=== PATIENT | male | born 1940 | race Caucasian/White ===

== ENCOUNTER 2020-06-04 16:34 | Emergency (ER) | payer MEDICARE, OTHER ==
[~2020-06-04] VITALS: Ht 182.9 cm; Wt 99.8 kg
[2020-06-04] MEDS ORDERED: FURO20TA4 PO (17:41)
[2020-06-04] MEDS ORDERED: POTA8TAB3 PO (17:41)
[2020-06-04] MEDS ORDERED: CETI10TA14 PO (17:41)
[2020-06-04] MEDS ORDERED: CLON1TAB12 MT (17:41)
--- NOTE | 2020-06-04 18:14 | NUR ---
[facility], + COVID test per shook splicer report Isolation precaution observed all the time All blood works done and sent to lab
[2020-06-04 18:20] LABS: BASOPHILS % (AUTO) 0.5 % (0.0-2.0); PLATELET COUNT (AUTO) 160 /CMM (150-450)
[2020-06-04 18:22] LABS: EOSINOPHILS % (AUTO) 0.1 % (0.0-6.0); HEMATOCRIT 52 % (39-51); HEMOGLOBIN 17.5 g/dL (13.5-17.5); LYMPHOCYTES % (AUTO) 12.3 % (20.0-44.0); MEAN CORPUSCULAR HGB CONC 33 g/dl (31.0-36.0); MEAN CORPUSCULAR VOLUME 89 fL (80-96); MONOCYTES % (AUTO) 12.5 % (2.0-12.0); NEUTROPHILS % (AUTO) 74.6 % (43.0-81.0); RED BLOOD CELL COUNT(AUTO) 5.87 MIL/uL (4.5-6.0)
[2020-06-04 18:29] LABS: CALCIUM, SERUM 8.4 mg/dL (8.5-10.1); CARBON DIOXIDE 25 mmol/L (21-32); CHLORIDE 100 mmol/L (98-107); CREATININE 1.7 mg/dL (0.6-1.3); GLUCOSE 130 mg/dL (74-106); POTASSIUM 4.4 mmol/L (3.5-5.1); SODIUM SERUM 136 mmol/L (136-145); UREA NITROGEN, BLOOD 20 mg/dL (7-18)
[2020-06-04 18:43] LABS: ALANINE AMINOTRANSFERASE 31 U/L (12-78); ALBUMIN 3.3 g/dL (3.4-5.0); ALKALINE PHOSPHATASE 109 U/L (46-116); ASPARTATE AMINOTRANSFERASE 38 U/L (15-37); B-TYPE NATRIURETIC PEPTIDE 480 PG/ML (0-125); BILIRUBIN,TOTAL 0.7 mg/dL (0.2-1.0); TOTAL PROTEIN, SERUM 7.8 g/dL (6.4-8.2)
--- NOTE | 2020-06-04 18:43 | NUR ---
to ER 07; isolation precaution observed at all time
--- NOTE | 2020-06-04 19:16 | NUR ---
MOVE SHEET SUBMITTED.
[2020-06-04 19:34] LABS: CREATINE KINASE, TOTAL 137 U/L (39-308); FERRITIN 382 ng/mL (8-388)
[2020-06-04 19:35] LABS: C-REACTIVE PROTEIN 6.6 mg/dL (0.0-0.9)
--- NOTE | 2020-06-04 19:36 | NUR ---
Unable to move the patient to ER bed 7; another sick patient showed up. Awaiting for bed availability at the ER department, for now the patient stays at the [facility]
[2020-06-04] MEDS ORDERED: CEFTRIAXONE 1 G in IV D5W 50 ML IV ONE (20:00)
[2020-06-04] MEDS ORDERED: AZITHROMYCIN 500 MG in IV D5W 250 ML IV ONE (20:00)
[2020-06-04] MEDS ORDERED: AZITHROMYCIN 250 MG TABLET ONE (20:29)
[2020-06-04] MEDS ORDERED: IV NS 0.9% 1,000 ML IV ONE (20:30)
[2020-06-04] MEDS ORDERED: AZITHROMYCIN 250 MG TABLET PO ONE (20:30)
--- NOTE | 2020-06-04 21:56 | NUR ---
FAMILY AT ER TO DRIVE PATIENT HOME.
--- NOTE | 2020-06-04 22:10 | NUR ---
Patient discharged to home in stable condition. Written and verbal after care instructions given. Patient verbalizes understanding of instruction.IV removed. Catheter intact and site benign. Pressure and 4x4 applied to site. No bleeding noted.
[2020-06-04 22:11] VITALS: BP 153/87
== END 2020-06-04 22:12 | disposition home or self-care (01) ==
LOC: ER 16:37
DX: U07.1 COVID-19 (principal); R55 Syncope and collapse; J12.89 Other viral pneumonia; E11.9 Type 2 diabetes mellitus without complications; Z79.899 Other long term (current) drug therapy
CPT/HCPCS: 36415; 70450; 71045; 80053; 82550; 82728; 83605; 83615; 83880; 84145; 84484; 85025; 85730; 86140; 87040 ×2; 93005; 96360; 99285; J0696; J7060

== ENCOUNTER 2021-04-20 14:05 | Inpatient (IN) | payer MEDICARE, OTHER ==
[2021-04-20] VITALS (20 sets, daily range): BP systolic 105–154; BP diastolic 65–107
[~2021-04-20] VITALS: Ht 177.8 cm; Wt 102.1 kg
[~2021-04-20 14:05] MED LIST: CETI10TA14 PO; CLON1TAB12 MT; FURO20TA4 PO; POTA8TAB3 PO
--- NOTE | 2021-04-20 14:21 | NUR ---
[id number] frm home c/o SOB since 10am. got covid booster dose yesterday. PT AAOX4, RR EVEN & UNLAB. ON TELE, ST. DENIES CP, DIZZINESS, N/V AT THIS TIME. AWAITING EVAL BY ERMD & WILL CONT TO MONITOR.
--- NOTE | 2021-04-20 14:35 | NUR ---
DR. LEIVA AT FOR DENISSEAL.
[2021-04-20] MEDS ORDERED: DILTIAZEM HCL 50 MG IV IV ONE (14:48)
[2021-04-20] MEDS ORDERED: IV NS 0.9% 100 ML BAG IV ONE (14:48)
[2021-04-20 15:21] LABS: BASOPHILS % (AUTO) 0.5 % (0.0-2.0); EOSINOPHILS % (AUTO) 0.3 % (0.0-6.0); HEMATOCRIT 50 % (39-51); HEMOGLOBIN 16.8 g/dL (13.5-17.5); LYMPHOCYTES # (AUTO) 1.2 K/uL (0.8-4.8); LYMPHOCYTES % (AUTO) 11.5 % (20.0-44.0); MEAN CORPUSCULAR HGB CONC 34 g/dl (31.0-36.0); MEAN CORPUSCULAR VOLUME 90 fL (80-96); MONOCYTES # (AUTO) 0.8 K/uL (0.1-1.30); MONOCYTES % (AUTO) 7.7 % (2.0-12.0); NEUTROPHILS # (AUTO) 8.3 K/uL (1.8-8.9); PLATELET COUNT (AUTO) 217 K/uL (150-450); RED BLOOD CELL COUNT(AUTO) 5.58 MIL/uL (4.5-6.0); WHITE BLOOD COUNT (AUTO) 10.3 K/uL (4.3-11.0)
[2021-04-20 15:45] LABS: ALANINE AMINOTRANSFERASE 46 U/L (12-78); ALBUMIN 3.9 g/dL (3.4-5.0); ALKALINE PHOSPHATASE 114 U/L (46-116); ASPARTATE AMINOTRANSFERASE 30 U/L (15-37); BILIRUBIN,DIRECT 0.2 mg/dL (0.0-0.2); BILIRUBIN,TOTAL 0.7 mg/dL (0.2-1.0); CALCIUM, SERUM 9.1 mg/dL (8.5-10.1); CARBON DIOXIDE 26 mmol/L (21-32); CHLORIDE 101 mmol/L (98-107); CREATININE 1.6 mg/dL (0.6-1.3); GLUCOSE 110 mg/dL (74-106); POTASSIUM 4.1 mmol/L (3.5-5.1); SODIUM SERUM 138 mmol/L (136-145); UREA NITROGEN, BLOOD 29 mg/dL (7-18)
--- NOTE | 2021-04-20 16:19 | NUR ---
MOVE SHEET SUBMITTED
[2021-04-20] MEDS ORDERED: FUROSEMIDE 40 MG/4 ML VIAL IV ONE (16:30)
[2021-04-20] MEDS ORDERED: ADENOSINE 6 MG/2 ML VIAL ONE ×2 (16:35→16:38)
[2021-04-20] MEDS ORDERED: ADENOSINE 6 MG/2 ML VIAL IVP ONE ×2 (17:00→17:30)
--- NOTE | 2021-04-20 17:05 | NUR ---
CARDIOVERSION UNSUCCESSFUL. ON TELE, HR 145. PT WILL START ON CARDIZEM DRIP PER ERMD ORDER. WILL CONT TO MONITOR.
--- NOTE | 2021-04-20 17:10 | NUR ---
[facility] CALLED CHILD CARE ATTENDANT [employer] PAGED.
[2021-04-20] MEDS ORDERED: FUROSEMIDE 40 MG/4 ML VIAL ONE (17:18)
[2021-04-20] MEDS ORDERED: DILTIAZEM HCL IV 125 MG in IV NS 0.9% 100 ML IV PRN (17:30)
[2021-04-20 17:44] LABS: THYROID STIMULATING HORMONE 3.094 uIU/mL (0.358-3.74)
--- NOTE | 2021-04-20 17:45 | NUR ---
CARDIZEM DRIP INITIATED PER ERMD ORDER, PT NICOLE WELL. WILL CONT TO MONITOR.
[2021-04-20 17:46] LABS: MAGNESIUM 2.3 mg/dL (1.8-2.4)
[2021-04-20] MEDS ORDERED: MAG HYDROX/AL HYDROX/SIMETH 30 ML UDC PO PRN (18:00)
[2021-04-20] MEDS ORDERED: MAGNESIUM HYDROXIDE 30 ML UDC PO PRN (18:00)
[2021-04-20] MEDS ORDERED: ZOLPIDEM TARTRATE 5 MG TABLET PO PRN (18:00)
[2021-04-20] MEDS ORDERED: Z GUARD REMEDY 2 OZ OINT TP PRN (18:00)
[2021-04-20] MEDS ORDERED: ONDANSETRON HCL/PF 4 MG/2 ML VIAL IVP PRN (18:00)
--- NOTE | 2021-04-20 18:43 | NUR ---
REPORT GIVEN TO EZEQUIEL PAZ FOR DIONNA
--- NOTE | 2021-04-20 18:58 | NUR ---
RN NOTE RECEIVED PATIENT FROM ER VIA GURNEY ACCOMPANIED BY 2 ER STAFF AND TRANSFERRED TO BED VIA 2 PERSON ASSIST. PT IS AO X 3-4, HAS DIFFICULTY HEARING ON BOTH EARS, IN NO SIGN OF ACUTE DISTRESS, RESPIRATIONS EVEN AND UNLABORED, SATURATION AT 99% ON 2L VIA NC. COMPREHENSIVE PHYSICAL ASSESSMENT AND PATIENT CARE DONE. NO SKIN ISSUES NOTED. NOTED IV LINE AT KUSHAL 20G, AND R HAND 20G, BOTH PATENT AND FLUSHING WELL, NO S/S OF INFECTION OR INFILTRATION NOTED WITH CARDIZEM INFUSING AT 10 MG/HR. SAFETY MEASURES IN PLACE, CALL LIGHT WITHIN REACH OF PATIENT, BED ON LOWEST POSITION, SIDE RAILS UP X 2. WILL CONTINUE MONITOR AND ASSESS THROUGHOUT THE SHIFT. WILL CARRY OUT MD ORDERS ACCORDINGLY. RADAR ENGINEER MADE AWARE.
[2021-04-20] MEDS ORDERED: ENOXAPARIN SODIUM 40 MG/0.4 ML DISP.SYRIN SQ SCH ×2 (19:00→21:00)
--- NOTE | 2021-04-20 20:05 | NUR ---
RN NOTE COVID ANTIGEN SWAB COLLECTED AND SENT TO LAB
[2021-04-20] MEDS: DILTIAZEM HCL IV 125 MG in IV NS 0.9% 100 ML IV PRN (21:09)
[2021-04-21] VITALS (89 sets, daily range): BP systolic 84–155; BP diastolic 45–114
[2021-04-21 05:06] LABS: BASOPHILS % (AUTO) 0.6 % (0.0-2.0); EOSINOPHILS % (AUTO) 0.4 % (0.0-6.0); HEMATOCRIT 46 % (39-51); HEMOGLOBIN 16.2 g/dL (13.5-17.5); LYMPHOCYTES % (AUTO) 16.4 % (20.0-44.0); MEAN CORPUSCULAR HGB CONC 35 g/dl (31.0-36.0); MEAN CORPUSCULAR VOLUME 88 fL (80-96); MONOCYTES # (AUTO) 0.9 K/uL (0.1-1.30); MONOCYTES % (AUTO) 14.6 % (2.0-12.0); PLATELET COUNT (AUTO) 188 K/uL (150-450); RED BLOOD CELL COUNT(AUTO) 5.25 MIL/uL (4.5-6.0); WHITE BLOOD COUNT (AUTO) 5.8 K/uL (4.3-11.0)
[2021-04-21] MEDS: DILTIAZEM HCL IV 125 MG in IV NS 0.9% 100 ML IV PRN (05:17)
[2021-04-21 05:20] LABS: ALANINE AMINOTRANSFERASE 31 U/L (12-78); ALBUMIN 3.2 g/dL (3.4-5.0); ALKALINE PHOSPHATASE 102 U/L (46-116); ASPARTATE AMINOTRANSFERASE 18 U/L (15-37); BILIRUBIN,TOTAL 0.6 mg/dL (0.2-1.0); CALCIUM, SERUM 8.3 mg/dL (8.5-10.1); CARBON DIOXIDE 28 mmol/L (21-32); CHLORIDE 101 mmol/L (98-107); CREATININE 1.7 mg/dL (0.6-1.3); GLUCOSE 126 mg/dL (74-106); MAGNESIUM 2.2 mg/dL (1.8-2.4); PHOSPHORUS 3.9 mg/dL (2.5-4.9); POTASSIUM 3.8 mmol/L (3.5-5.1); SODIUM SERUM 137 mmol/L (136-145); TOTAL PROTEIN, SERUM 6.9 g/dL (6.4-8.2); UREA NITROGEN, BLOOD 28 mg/dL (7-18)
[2021-04-21 05:28] LABS: THYROID STIMULATING HORMONE 1.118 uIU/mL (0.358-3.74)
--- NOTE | 2021-04-21 08:00 | NUR ---
RN NOTES RECEIVED PATIENT ON ROOM AIR, NO ACUTE RESPIRATORY DISTRESS, HR CONVERTED TO THE REGULAR RHYTHM, ON BEDSIDE MONITOR SHOWS 74. INFUSING CARDIZEM 5 MG/ML/HR ON RIGHT HAND INTACT. PATIENT REFUSED PAIN, USING URINAL. VSS,. SEEN [place] CONSULTANT DR BAEZA FOR CONSULTATION. TOLERATED BREAKFAST 75% SELF. CALL LIGHT WITHIN TO REACH.
[2021-04-21] MEDS: cetrizine 10 MG TABLET PO SCH (09:29)
[2021-04-21] MEDS: FUROSEMIDE 40 MG/4 ML VIAL IV SCH (09:29)
[2021-04-21] MEDS ORDERED: AMIODARONE 450 MG in IV D5W 250 ML IV PRN (09:30)
[2021-04-21] MEDS ORDERED: AMIODARONE 150 MG in IV D5W 100 ML IV ONE (09:30)
--- NOTE | 2021-04-21 09:37 | NUR ---
RN NOTES STOP CARDIZEM DRIP PER RECORDING STUDIO INTERNSHIP ORDER, DUE MEDICATION ADMINISTERED, STARTED AMIODARONE BOLUS 618ML, GETTING BEDSIDE ECHO.
[2021-04-21] MEDS: APIXABAN 2.5 MG TABLET PO SCH ×2 (09:58→17:53)
[2021-04-21] MEDS: AMIODARONE 450 MG in IV D5W 241 ML IV PRN ×2 (10:42→20:08)
--- NOTE | 2021-04-21 14:35 | NUR ---
RN NOTES UA COLLECTED VIA CLEAN CATCH, CALLED LAB FOR MULTIPLEX OPERATOR.
[2021-04-21] MEDS: ACETAMINOPHEN 325 MG TABLET PO PRN (15:05)
--- NOTE | 2021-04-21 15:05 | NUR ---
RN NOTES ADMINISTERED TYLENOL 650 MG PO PRN FOR HEADACHE PER PATIENT REQUEST HR-94, BP 111/57, R-19. WILL FOLLOW UP.
[2021-04-21 15:57] LABS: CREATININE, URINE 47.5 MG/DL (30.0-125.0); URINE TOTAL PROTEIN 17.6 mg/dL (0-11.9)
[2021-04-21 16:19] LABS: BILIRUBIN,URINE NEGATIVE (NEGATIVE); COLOR,URINE YELLOW (YELLOW); LEUKOCYTE ESTERASE ,URINE NEGATIVE (NEGATIVE); NITRITE, URINE NEGATIVE (NEGATIVE); PROTEIN,URINE NEGATIVE (NEGATIVE); UGLUCOSE NEGATIVE (NEGATIVE); UROBILINOGEN,URINE 0.2 EU/dL (0.2)
[2021-04-21 16:41] LABS: BACTERIA,URINE None seen /HPF (None Seen); HYALINE CASTS, URINE RARE /LPF (None Seen); SQUAMOUS EPITHELIAL CELL,UR 0-2 /HPF (None Seen); WBC,URINE 0-2 /HPF (0-3)
--- NOTE | 2021-04-21 18:30 | NUR ---
rn notes patient again afif at this time bedside monitor shows hr 108, refused pain, no acute respiratory distress. due medication administered, patient using urinal, bed alarm on. call light within to reach. infusing amiodarone drip 16.6 ml/hr. endorsed oncoming nurse les.
[2021-04-22] VITALS (38 sets, daily range): BP systolic 93–158; BP diastolic 43–104
--- NOTE | 2021-04-22 04:22 | NUR ---
RN notes Received patient awake in bed watching TV with no distress noted. On 2lpm O2 via nasal cannula tolerating well. Alert and oriented, verbally able to communicate needs. No complaint of pain or discomfort. Continent of bowel and bladder function. On amiodarone drip at 0.5mcg/kg/hr, toelrating well. Kept clean and dry. Will endorse to next shift for continuity of care.
--- NOTE | 2021-04-22 07:30 | NUR ---
OPENING NOTE: REPORT RECEIVED FROM LARRY NIEVES. PT OX3 PER REPORT. PT APPEARS TO BE SLEEPING AT THIS TIME. AMIODARONE GTT INFUSING PER MD ORDERS, D/T END AT 0945 THIS AM. PT CURRENTLY SINUS TACH. NO ISOLATION NOTED. PT CHECKED ON HOURLY AND PRN BY NURSING STAFF.
[2021-04-22 08:15] LABS: BASOPHILS % (AUTO) 0.4 % (0.0-2.0); EOSINOPHILS % (AUTO) 1.1 % (0.0-6.0); HEMATOCRIT 48 % (39-51); LYMPHOCYTES % (AUTO) 13.9 % (20.0-44.0); MEAN CORPUSCULAR HGB CONC 34 g/dl (31.0-36.0); MEAN CORPUSCULAR VOLUME 90 fL (80-96); MONOCYTES # (AUTO) 1.1 K/uL (0.1-1.30); NEUTROPHILS % (AUTO) 69.6 % (43.0-81.0); PLATELET COUNT (AUTO) 175 K/uL (150-450); RED BLOOD CELL COUNT(AUTO) 5.28 MIL/uL (4.5-6.0); WHITE BLOOD COUNT (AUTO) 7.1 K/uL (4.3-11.0)
[2021-04-22 08:41] LABS: ALANINE AMINOTRANSFERASE 41 U/L (12-78); ALBUMIN 3.1 g/dL (3.4-5.0); ALKALINE PHOSPHATASE 111 U/L (46-116); ASPARTATE AMINOTRANSFERASE 28 U/L (15-37); BILIRUBIN,TOTAL 0.6 mg/dL (0.2-1.0); CALCIUM, SERUM 8.1 mg/dL (8.5-10.1); CARBON DIOXIDE 32 mmol/L (21-32); CHLORIDE 100 mmol/L (98-107); CREATININE 2.1 mg/dL (0.6-1.3); GLUCOSE 128 mg/dL (74-106); MAGNESIUM 2.1 mg/dL (1.8-2.4); PHOSPHORUS 3.2 mg/dL (2.5-4.9); SODIUM SERUM 138 mmol/L (136-145); UREA NITROGEN, BLOOD 37 mg/dL (7-18)
[2021-04-22 09:00] LABS: THYROID STIMULATING HORMONE 2.088 uIU/mL (0.358-3.74)
[2021-04-22] MEDS: FUROSEMIDE 40 MG/4 ML VIAL IV SCH (09:52)
[2021-04-22] MEDS: APIXABAN 2.5 MG TABLET PO SCH ×2 (09:53→17:21)
[2021-04-22] MEDS: cetrizine 10 MG TABLET PO SCH (09:53)
--- NOTE | 2021-04-22 10:23 | NUR ---
RIGHT HAND IV PAINFUL TO FLUSH, SLIGHT BLOOD RETURN. IV SITE REMOVED D/T PAIN. MULTIPLE ATTEMPTS TO START NEW IV SITE WITHOUT SUCCESS. ORDER FOR MIDLINE RECEIVED. GUSTABO, NURSING MEDICAL DEVICE ENGINEER NOTIFIED OF NEED FOR MIDLINE DAV. LASIX DOSE WILL BE GIVEN WITH NEW IV SITE.
--- NOTE | 2021-04-22 11:45 | NUR ---
AM LASIX DOSE GIVEN AT THIS TIME. NEW MIDLINE INSERTED BY PICC LINE RN AT 1120 IN LEFT UPPER ARM
[2021-04-22] MEDS: METOPROLOL TARTRATE 50 MG TABLET PO SCH ×2 (12:57→17:21)
[2021-04-22] MEDS: ACETAMINOPHEN 325 MG TABLET PO PRN (12:57)
[2021-04-22] MEDS ORDERED: IV NS 0.9% 250 ML IV ONE (14:30)
--- NOTE | 2021-04-22 18:38 | NUR ---
END OF SHIFT NOTE: PT HAD A FAIRLY UNEVENTFUL SHIFT. MIDLINE INSERTED IN LEFT UPPER ARM PER MD ORDERS. AMIODARONE DC'D PER DR BAEZA. PT CONTINUES TO BE IN A-FIB IN THE 80'S-90'S MOST OF THE SHIFT, THIS AM HE WAS IN ST IN THE 130'S-140'S. PT IS ASYMPTOMATIC. PT VOIDED PER URINAL WITHOUT DIFFICULTY. PT SAT IN CHAIR FOR A FEW HOURS TODAY WITHOUT DIFFICULTY, ABLE TO MOVE AROUND IN BED AND TO CHAIR WITHOUT ASSISTANCE. PT CHECKED ON HOURLY AND PRN BY NURSING STAFF.
--- NOTE | 2021-04-22 20:00 | NUR ---
STRATEGY ANALYST. INITIAL ASSESSMENT. RECEIVED THE PT REST ON THE BED. AWAKE, ALERT, FOLLOW COMMANDS, SOCIAL MEDIA STRATEGIST SHOWING IV LT HAND MID LINE. SALINE LOCK. AFEBRILE. SOCIAL MEDIA STRATEGIST SHOWING A TACH. WILL CONTINUE TO MONITOR VITALS
[2021-04-23] VITALS (14 sets, daily range): BP systolic 96–146; BP diastolic 49–92
--- NOTE | 2021-04-23 | NUR ---
HERB GROWER. PT REFUSED CHECKING EVERY HOUR BLOOD PRESSURE CHECKING.
[2021-04-23] MEDS: METOPROLOL TARTRATE 50 MG TABLET PO SCH ×5 (00:02→16:59)
[2021-04-23 05:25] LABS: ALANINE AMINOTRANSFERASE 57 U/L (12-78); ALBUMIN 3.2 g/dL (3.4-5.0); ALKALINE PHOSPHATASE 143 U/L (46-116); ASPARTATE AMINOTRANSFERASE 41 U/L (15-37); BASOPHILS # (AUTO) 0.1 K/uL (0.0-0.2); BASOPHILS % (AUTO) 0.6 % (0.0-2.0); CALCIUM, SERUM 8.2 mg/dL (8.5-10.1); CARBON DIOXIDE 30 mmol/L (21-32); CHLORIDE 101 mmol/L (98-107); EOSINOPHILS % (AUTO) 1.2 % (0.0-6.0); GLUCOSE 107 mg/dL (74-106); HEMATOCRIT 48 % (39-51); HEMOGLOBIN 16.7 g/dL (13.5-17.5); LYMPHOCYTES # (AUTO) 1.6 K/uL (0.8-4.8); LYMPHOCYTES % (AUTO) 18.3 % (20.0-44.0); MAGNESIUM 2.1 mg/dL (1.8-2.4); MEAN CORPUSCULAR HGB CONC 35 g/dl (31.0-36.0); MEAN CORPUSCULAR VOLUME 88 fL (80-96); MONOCYTES # (AUTO) 1.2 K/uL (0.1-1.30); MONOCYTES % (AUTO) 13.5 % (2.0-12.0); NEUTROPHILS # (AUTO) 5.8 K/uL (1.8-8.9); NEUTROPHILS % (AUTO) 66.4 % (43.0-81.0); PHOSPHORUS 3.2 mg/dL (2.5-4.9); PLATELET COUNT (AUTO) 182 K/uL (150-450); POTASSIUM 3.8 mmol/L (3.5-5.1); SODIUM SERUM 140 mmol/L (136-145); TOTAL PROTEIN, SERUM 7.1 g/dL (6.4-8.2); UREA NITROGEN, BLOOD 35 mg/dL (7-18); WHITE BLOOD COUNT (AUTO) 8.7 K/uL (4.3-11.0)
--- NOTE | 2021-04-23 05:31 | NUR ---
VOICE WRITING REPORTER. AM CARE GIVEN. PRESS OPERATOR AUTOMATIC SHOWING A FIB. AFEBRILE, HOB ELEVATED, WILL CONTINUE TO MONITOR VITALS.
--- NOTE | 2021-04-23 07:30 | NUR ---
OPENING NOTE: REPORT RECEIVED FROM KATHY NIEVES. PT ALERT OX3 TODAY. PT IS HARD OF HEARING. PT CONTINUES TO BE A-FIB AT A RATE OF BETWEEN 80'S-90'S ASYMPTOMATIC. PT IS STEADY ON HIS FEET IN ROOM TO CHAIR AND COMMODE. PT CHECKED ON HOURLY AND PRN BY NURSING STAFF.
[2021-04-23] MEDS: DILTIAZEM HCL CD 240 MG PO SCH (09:00)
[2021-04-23] MEDS: cetrizine 10 MG TABLET PO SCH (09:01)
[2021-04-23] MEDS: APIXABAN 2.5 MG TABLET PO SCH ×2 (09:01→16:58)
--- NOTE | 2021-04-23 11:00 | NUR ---
TELEPHONE REPORT CALLED TO ALVARO NIEVES FOR PT TRANSFER TO ROOM 324-2.
--- NOTE | 2021-04-23 11:30 | NUR ---
PT TRANSFERRED TOROOM 324-2 VIA BED, ACCOMPANIED BY PT'S . 2 RN'S TRANSFERRED PATIENT ON TELE MONITORING. HAND OFF REPORT GIVEN TO ALVARO NIEVES. ALL PERSONAL BELONGINGS SENT WITH PATIENT.
--- NOTE | 2021-04-23 16:59 | NUR ---
Tele/Rn Notes Withheld BP meds WITHHELD BP MEDS DUE TO LOW BLOOD PRESSURE 96/53 PULSE 71. WILL CONTINUE TO MONITOR
[2021-04-23] MEDS: ACETAMINOPHEN 325 MG TABLET PO PRN (17:12)
--- NOTE | 2021-04-23 17:13 | NUR ---
HINGING MACHINE OPERATOR NOTES- PAIN \ TYLENOL 650 MG GIVEN TO PT FOR MILD PAIN OF 3 ON RIGHT HAND
--- NOTE | 2021-04-23 19:40 | NUR ---
CEMETERY COUNSELOR OPENING NOTES PATIENT IS AWAKE, A&O X 3, WITH PERIODS OF FORGETFULNESS NOTED. PATIENT WITH MIDLINE AT ELO,PATENT AND FLUSHES WELL. ON TELE MONITOR SHOWING A FIB HR= 100'SHR. NO CARDIAC DISTRESS VOICED. ON RA TOLERATING WELL. NO S/SX OF RESPIRATORY DISTRESS NOTED. BREATHING EVEN AND UNLABORED. SAFETY PRECAUTIONS IN PLACE: BED ON LOWEST LOCKED POSITION, SIDE RAILS UP X 2, CALL LIGHT WITHIN EASY REACH. WILL CONTINUE TO MONITOR PATIENT ACCORDINGLY.
[2021-04-24] VITALS (13 sets, daily range): BP systolic 102–139; BP diastolic 60–88
--- NOTE | 2021-04-24 06:29 | NUR ---
FOUR CORNER STAYER MACHINE OPERATOR CLOSING NOTES PATIENT IS AWAKE, A&O X 3, WITH PERIODS OF FORGETFULNESS NOTED. PATIENT WITH MIDLINE AT ELO,PATENT AND FLUSHES WELL. ON TELE MONITOR SHOWING A FIB HR= 100'SHR. NO CARDIAC DISTRESS VOICED AT THIS TIME. ON ROOM AIR, TOLERATING WELL. NO S/SX OF RESPIRATORY DISTRESS NOTED. BREATHING EVEN AND UNLABORED. SAFETY PRECAUTIONS IN PLACE: BED ON LOWEST LOCKED POSITION, SIDE RAILS UP X 2, CALL LIGHT WITHIN EASY REACH. WILL ENDORSED PATIENT TO DAY SHIFT NURSE FOR DIONNA.
--- NOTE | 2021-04-24 07:57 | NUR ---
TELE/RN OPENING NOTES RECEIVED PATIENT IN BED, AWAKE, A&O X 3, WITH PERIODS OF FORGETFULNESS NOTED. STABLE ON ROOM AIR. NO S/SX OF RESPIRATORY DISTRESS NOTED. BREATHING EVEN AND UNLABORED.IV ACCESS MIDLINE AT LEFT UPPER ARM, PATENT AND FLUSHES WELL. ON TELE MONITOR SHOWING A FIB HR= 100'SHR. SAFETY PRECAUTIONS IN PLACE: BED ON LOWEST LOCKED POSITION, SIDE RAILS UP X 2, CALL LIGHT WITHIN EASY REACH. WILL CONTINUE WITH THE PLAN OF CARE.
[2021-04-24] MEDS: APIXABAN 2.5 MG TABLET PO SCH ×3 (09:00→16:54)
[2021-04-24] MEDS: cetrizine 10 MG TABLET PO SCH (09:16)
[2021-04-24] MEDS: DILTIAZEM HCL CD 240 MG PO SCH (09:16)
[2021-04-24] MEDS: METOPROLOL TARTRATE 50 MG TABLET PO SCH ×2 (09:18→16:29)
--- NOTE | 2021-04-24 09:19 | NUR ---
PROBATION AGENT NOTES- BLEEDING ELIQUIS NOT GIVEN PATIENT HAD A NOSEBLEED. WILL CONTINUE TO MONITOR.
--- NOTE | 2021-04-24 19:15 | NUR ---
PLACE CHANGE ROOF BOLTER CLOSING NOTES PATIENT IS AWAKE IN BED, A&O X 3. PATIENT WITH MIDLINE AT ELO,PATENT AND FLUSHES WELL. ON TELE MONITOR SHOWING A FLUTTER HR CURRENTLY AT 64 BPM. NO CARDIAC DISTRESS VOICED AT THIS TIME. PT ON ROOM AIR, TOLERATING WELL. NO S/SX OF RESPIRATORY DISTRESS NOTED. BREATHING EVEN AND UNLABORED AT THIS TIME. SAFETY PRECAUTIONS IN PLACE: BED ON LOWEST POSITION AND MAINTAINED LOCKED, SIDE RAILS UP X 2, CALL LIGHT WITHIN REACH. WILL ENDORSE PATIENT TO ONCOMING SHIFT
--- NOTE | 2021-04-24 19:40 | NUR ---
RN NOTES Received patient awake on his bed, a/ox4, hard of hearing , A-flutter on tele monitor HR-, denies pain, no SOB, call light within reach, siderailsupx2. will continue to monitor
[2021-04-25] VITALS: BP 128/65
[2021-04-25 04:00] VITALS: BP 128/66
--- NOTE | 2021-04-25 06:25 | NUR ---
RN NOTES Awake, denies pain, no SOB< morning care rendered, call light within reach, siderailsupx2, pt. needs attended
--- NOTE | 2021-04-25 07:18 | NUR ---
TELE/RN OPENING NOTES RECEIVED PATIENT IN BED, AWAKE, A&O X 3, WITH PERIODS OF FORGETFULNESS NOTED. STABLE ON ROOM AIR. NO S/SX OF RESPIRATORY DISTRESS NOTED. BREATHING EVEN AND UNLABORED.IV ACCESS MIDLINE AT LEFT UPPER ARM, PATENT AND INTACT. PATIENT IS ON TELE MONITOR SHOWING A FLUTTER. PATIENT DENIES PAIN OR DISCOMFORT AT THIS TIME. SAFETY PRECAUTIONS IN PLACE: BED ON LOWEST LOCKED POSITION, SIDE RAILS UP X 2, CALL LIGHT WITHIN EASY REACH. WILL CONTINUE TO MONITOR
[2021-04-25] MEDS: METOPROLOL TARTRATE 50 MG TABLET PO SCH (08:16)
[2021-04-25] MEDS: cetrizine 10 MG TABLET PO SCH (08:16)
[2021-04-25] MEDS: APIXABAN 2.5 MG TABLET PO SCH (08:17)
[2021-04-25] MEDS: DILTIAZEM HCL CD 240 MG PO SCH (08:17)
[2021-04-25 08:41] VITALS: BP 156/98
--- NOTE | 2021-04-25 12:25 | NUR ---
INTERNATIONAL REPRESENTATIVE NOTE RECEIVED DISCHARGE ORDER. PATIENT IS A/O X4. PATIENT IS BREATHING EVENLY AND NONLABORED ON ROOM AIR. NO SIGNS OF DISTRESS NOTED, NO COMPLAINTS OF PAIN. PATIENT WAS GIVEN DISCHARGE INSTRUCTIONS BOTH VERBALLY AND IN WRITTEN FORM. PATIENT VERBALIZED UNDERSTANDING. PATIENTS IV ACCESS REMOVED CATHETER TIP INTACT, PRESSURE DRESSING APPLIED NO BLEEDING NOTED. PATIENTS BELONGINGS ACCOUNTED FOR, BELONGINGS FORM SIGNED. PATIENTS ID BAND REMOVED. PATIENT LEFT IN STABLE CONDITION VIA PRIVATE CAR.
[2021-04-25] MEDS ORDERED: DIGOXIN 0.25 MG TABLET PO SCH (13:00)
[2021-04-29] MEDS ORDERED: DIGOXIN 0.125 MG TABLET PO SCH (13:00)
== END 2021-04-25 12:20 | disposition home or self-care (01) | DRG 291 ==
LOC: ER 14:47 → ICU 18:05 → TELE 04-23 11:27
PROVIDERS: ADMIT Internal Medicine; ATTEND Internal Medicine
PROC: 05HF33Z Insertion of Infusion Device into Left Cephalic Vein, Percutaneous Approach (ICD-10-PCS; principal; 2021-04-22)
DX: I13.0 Hypertensive heart and chronic kidney disease with heart failure and stage 1 through stage 4 chronic kidney disease, or unspecified chronic kidney disease (principal); I50.33 Acute on chronic diastolic (congestive) heart failure; J96.01 Acute respiratory failure with hypoxia; N17.0 Acute kidney failure with tubular necrosis; I47.1 Supraventricular tachycardia; I48.92 Unspecified atrial flutter; E66.9 Obesity, unspecified; I25.10 Atherosclerotic heart disease of native coronary artery without angina pectoris; N18.9 Chronic kidney disease, unspecified; Z68.32 Body mass index [BMI] 32.0-32.9, adult; Z95.2 Presence of prosthetic heart valve; Z79.899 Other long term (current) drug therapy; I48.91 Unspecified atrial fibrillation; Z95.1 Presence of aortocoronary bypass graft; R73.9 Hyperglycemia, unspecified; N28.1 Cyst of kidney, acquired; Z20.822 Contact with and (suspected) exposure to COVID-19
CPT/HCPCS: 36410; 36415; 71045-TC; 76770-TC; 80048-TC; 80053-TC; 80076-TC; 81001; 82570-TC; 83735-TC; 83880; 84100-TC; 84155-TC; 84300-TC; 84439-TC; 84443-TC; 84484-TC; 85025-TC; 85378-TC; 85730-TC; 87081-TC; 93307-TC; 93970-TC; G0378; J0153; J0282; J1650; J1940; J3490; J7030; J7040; J7060

== ENCOUNTER 2022-05-22 05:38 | Inpatient (IN) | payer MEDICARE, OTHER ==
[~2022-05-22] VITALS: Ht 185.4 cm; Wt 108.7 kg
[~2022-05-22 05:38] MED LIST changes: -CLON1TAB12 MT; -FURO20TA4 PO; -POTA8TAB3 PO
--- NOTE | 2022-05-22 06:12 | NUR ---
PT BB RA 102 FROM HOME FOR RIGHT ARM PAIN S/P GLF. FENTANYL 100 MCG IV GIVEN PRINCIPAL BIOSTATISTICIAN. PT IS A/O X3, RR EVEN AND UNLABORED NO SOB NOTED. PT CONNECTED TO CARIDAC AND POX MONTIORS.
--- NOTE | 2022-05-22 06:31 | NUR ---
IV LINE ESTABLISHED, LFA20G
--- NOTE | 2022-05-22 06:32 | NUR ---
BLOOD COLLECTED AND SENT TO LAB
--- NOTE | 2022-05-22 06:32 | NUR ---
COVID SWAB COLLECTED
[2022-05-22 06:59] LABS: CALCIUM, SERUM 9.5 mg/dL (8.5-10.1); CARBON DIOXIDE 29 mmol/L (21-32); CHLORIDE 100 mmol/L (98-107); CREATININE 1.9 mg/dL (0.6-1.3); GLUCOSE 142 mg/dL (74-106); POTASSIUM 4.2 mmol/L (3.5-5.1); SODIUM SERUM 138 mmol/L (136-145); UREA NITROGEN, BLOOD 26 mg/dL (7-18)
[2022-05-22 07:03] LABS: ALANINE AMINOTRANSFERASE 23 U/L (12-78); ALBUMIN 4.6 g/dL (3.4-5.0); ALKALINE PHOSPHATASE 122 U/L (46-116); ASPARTATE AMINOTRANSFERASE 19 U/L (15-37); BILIRUBIN,DIRECT 0.2 mg/dL (0.0-0.2); BILIRUBIN,TOTAL 0.7 mg/dL (0.2-1.0); TOTAL PROTEIN, SERUM 9.2 g/dL (6.4-8.2)
[2022-05-22 07:06] LABS: BASOPHILS % (AUTO) 0.5 % (0.0-2.0); EOSINOPHILS % (AUTO) 1.8 % (0.0-6.0); HEMATOCRIT 52 % (39-51); HEMOGLOBIN 17.6 g/dL (13.5-17.5); LYMPHOCYTES # (AUTO) 2.6 K/uL (0.8-4.8); MEAN CORPUSCULAR HGB CONC 34 g/dl (31.0-36.0); MEAN CORPUSCULAR VOLUME 87 fL (80-96); MONOCYTES # (AUTO) 0.5 K/uL (0.1-1.30); MONOCYTES % (AUTO) 7.1 % (2.0-12.0); NEUTROPHILS # (AUTO) 4.1 K/uL (1.8-8.9); NEUTROPHILS % (AUTO) 55.6 % (43.0-81.0); PLATELET COUNT (AUTO) 270 K/uL (150-450); RED BLOOD CELL COUNT(AUTO) 5.99 MIL/uL (4.5-6.0); WHITE BLOOD COUNT (AUTO) 7.4 K/uL (4.3-11.0)
--- NOTE | 2022-05-22 07:27 | NUR ---
[facility]- [phone] [facility]- [phone]
[2022-05-22] MEDS ORDERED: POLY15DR17 EACHEYE (08:33)
[2022-05-22] MEDS ORDERED: METO25TA4 PO (08:33)
[2022-05-22] MEDS ORDERED: AMIO200T5 PO (08:33)
[2022-05-22] MEDS ORDERED: ASPI-1420 PO (08:33)
[2022-05-22] MEDS ORDERED: FURO40TA5 PO (08:33)
[2022-05-22] MEDS ORDERED: AMLO-213 PO (08:33)
[2022-05-22] MEDS ORDERED: CLON1TAB12 PO (08:33)
[2022-05-22] MEDS ORDERED: BRIN8DRO2 EACHEYE (08:36)
[2022-05-22] MEDS ORDERED: FLUT16SP16 (08:38)
--- NOTE | 2022-05-22 10:01 | NUR ---
GOT BED 326-1
--- NOTE | 2022-05-22 10:14 | NUR ---
CALLED DAUGHTER PETRA [phone] SPEAKING WITH ORTHO.
[2022-05-22] MEDS ORDERED: Z GUARD REMEDY 4 OZ OINT TP PRN (10:30)
[2022-05-22] MEDS ORDERED: clonazePAM 1 MG TABLET PO PRN (10:30)
[2022-05-22] MEDS ORDERED: MAG HYDROX/AL HYDROX/SIMETH 30 ML UDC PO PRN (10:30)
[2022-05-22] MEDS ORDERED: MAGNESIUM HYDROXIDE 30 ML UDC PO PRN (10:30)
[2022-05-22] MEDS ORDERED: ONDANSETRON HCL/PF 4 MG/2 ML VIAL IVP PRN (10:30)
[2022-05-22] MEDS ORDERED: IOHEXOL-350 100 ML VIAL IV ONE (11:09)
[2022-05-22] MEDS ORDERED: IV NS 0.9% 250 ML IV ONE (11:09)
[2022-05-22] MEDS ORDERED: FLUTICASONE PROPIONATE 16 GM BOTTLE NS PRN (12:00)
--- NOTE | 2022-05-22 12:06 | NUR ---
REPORT GIVEN PT READY TO TRANSFER TO ROOM 326-1
--- NOTE | 2022-05-22 12:30 | NUR ---
ADMISSION RN NOTES: ADMITTED 81YO MALE PATIENT FROM ER. ACCOMPANIED BY RN ABY AND TRANSPORTER. PT ALERT AND ORIENTED X 4 JENA NO SOB OR CARDIAC DISTRESS NOTED, DENIES ANY PAIN AT THIS TIME EXCEPT WHEN HE IS MOVING. NOTED WITH SLING ON HIS RIGHT ARM. IV ACCESS ON LFA GAUGE 20 PATENT AND INTACT AND INFUSING NS 1 L @ 75ML/HR. ABDOMEN SOFT,PT AMBULATORY NEEDS ASSISTANCE WHEN MOVING. BODY ASSESSMENT DONE SKIN IS INTACT. BELONGINGS: CELLPHONE AND CELLPHONE CAMPAIGN COORDINATOR, TOYA AND BRIEF KEPT IN PLASTIC BAG WITH IDENTIFICATION HEARING AND SPEECH ASSISTANT. HOME MEDS GIVEN TO PHARMACY. SAFETY MEASURES INITIATED: BED LOCKED AND IN LOWEST POSITION, SIDE RAILS UP X 2 CALL LIGHT IN EASY REACH FOR HELP. WILL MONITOR PT ACCORDINGLY.
--- NOTE | 2022-05-22 13:23 | NUR ---
RN NOTES: INFORMED DR LEBLANC FOR CARDIAC CLEARANCE WAITING FOR RESPONSE.
[2022-05-22] MEDS: IV NS 0.9% 1,000 ML IV PRN (16:08)
--- NOTE | 2022-05-22 19:00 | NUR ---
MS RN CLOSING NOTES: PT IN BED PT ALERT AND ORIENTED X 4 [place] NO SOB OR CARDIAC DISTRESS NOTED, DENIES ANY PAIN AT THIS TIME EXCEPT WHEN HE IS MOVING. NOTED WITH SLING ON HIS RIGHT ARM. IV ACCESS ON LFA GAUGE 20 PATENT AND INTACT AND INFUSING NS 1 L @ 75ML/HR.SAFETY MEASURES MAINTAINE:BED LOCKED AND IN LOWEST POSITION, SIDE RAILS UP X 2. CALL LIGHT IN EASY REACH AND WILL ENDORSE TO BUSINESS SERVICES SALES AGENT RN FOR CONTINUITY OF CARE.
--- NOTE | 2022-05-22 19:30 | NUR ---
MS RN OPENING NOTE RECEIVED PATIENT IN BED, WITH HOB ELEVATED, ALERT AND ORIENTED X3-4. ABLE TO COMMUNICATE NEEDS WITH THE STAFFS. AFEBRILE AND NOT IN ANY FORM OF ACUTE DISTRESS. BREATHING EVEN AND NON LABORED. WITH SLING ON R ARM, NOTED WITH INTACT SKIN AND GOOD CIRCULATION. SAFETY MEASURES IN PLACE. KEPT BED IN LOCKED AND IN LOW POSITION. SIDE RAILS UP X2. ADVISED TO USE THE CALL LIGHT WHEN IN NEED OF ASSISTANCE.
[2022-05-22 20:00] VITALS: BP 134/82
[2022-05-22] MEDS: TEMAZEPAM 15 MG CAPSULE PO PRN (20:51)
[2022-05-23] MEDS: IV NS 0.9% 1,000 ML IV PRN (05:26)
--- NOTE | 2022-05-23 06:30 | NUR ---
MS CLOSING NOTE PATIENT IN BED, WITH HOB ELEVATED, ASLEEP BUT EAY TO AROUSE AND RESPONSIVE. ABLE TO COMMUNICATE NEEDS WITH THE STAFFS. AFEBRILE AND NOT IN ANY FORM OF ACUTE DISTRESS. BREATHING EVEN AND NON LABORED. WITH IV ACCESS ON L FOREARM 22G-SL. WITH IMMOBILIZER ON R LEG. MEDICATED ORDERED. ON IV ATB, MONITORED FOR ANY ADVERSE REACTION. SAFETY MEASURES IN PLACE. KEPT BED IN LOCKED AND IN LOW POSITION. SIDE RAILS UP X2. ADVISED TO USE THE CALL LIGHT WHEN IN NEED OF ASSISTANCE. ENCOURAGED TO TURN AND REPOSITION EVERY 2 HOURS AND TOLERATED TO PROMOTE PROPER CIRCULATION AND COMFORT. CONSTANT VISUAL CHECK DONE TO ENSURE SAFETY. ALL NURSING NEEDS ATTENDED. ENDORSED TO INCOMING SHIFT FOR CONTINUITY OF CARE. Addendum: 05/23/22 at 0633 by RICHY CROOKS RN WRONG ENTRY
--- NOTE | 2022-05-23 06:31 | NUR ---
MS RN CLOSING NOTE PATIENT IN BED, WITH HOB ELEVATED, ASLEEP BUT EASY TO AROUSE AND RESPONSIVE. ABLE TO COMMUNICATE NEEDS WITH THE STAFFS. AFEBRILE AND NOT IN ANY FORM OF ACUTE DISTRESS. BREATHING EVEN AND NON LABORED. WITH SLING ON R ARM, NOTED WITH INTACT SKIN AND GOOD CIRCULATION. MEDICATED ORDERED. SAFETY MEASURES IN PLACE. KEPT BED IN LOCKED AND IN LOW POSITION. SIDE RAILS UP X2. ADVISED TO USE THE CALL LIGHT WHEN IN NEED OF ASSISTANCE. CONSTANT VISUAL CHECK DONE TO ENSURE SAFETY. ALL NURSING NEEDS ATTENDED. ENDORSED TO INCOMING SHIFT FOR CONTINUITY OF CARE.
[2022-05-23 06:48] LABS: BASOPHILS % (AUTO) 0.4 % (0.0-2.0); EOSINOPHILS % (AUTO) 0.6 % (0.0-6.0); HEMATOCRIT 47 % (39-51); HEMOGLOBIN 15.7 g/dL (13.5-17.5); LYMPHOCYTES # (AUTO) 1.8 K/uL (0.8-4.8); LYMPHOCYTES % (AUTO) 19.2 % (20.0-44.0); MEAN CORPUSCULAR HGB CONC 34 g/dl (31.0-36.0); MEAN CORPUSCULAR VOLUME 86 fL (80-96); MONOCYTES % (AUTO) 10.3 % (2.0-12.0); NEUTROPHILS # (AUTO) 6.6 K/uL (1.8-8.9); NEUTROPHILS % (AUTO) 69.5 % (43.0-81.0); PLATELET COUNT (AUTO) 248 K/uL (150-450); RED BLOOD CELL COUNT(AUTO) 5.41 MIL/uL (4.5-6.0); WHITE BLOOD COUNT (AUTO) 9.5 K/uL (4.3-11.0)
[2022-05-23 06:53] LABS: CALCIUM, SERUM 8.8 mg/dL (8.5-10.1); CARBON DIOXIDE 24 mmol/L (21-32); CHLORIDE 104 mmol/L (98-107); CREATININE 1.6 mg/dL (0.6-1.3); GLUCOSE 127 mg/dL (74-106); MAGNESIUM 2.2 mg/dL (1.8-2.4); POTASSIUM 4.2 mmol/L (3.5-5.1); SODIUM SERUM 139 mmol/L (136-145); UREA NITROGEN, BLOOD 22 mg/dL (7-18)
--- NOTE | 2022-05-23 07:35 | NUR ---
MS RN OPENING NOTE PATIENT IN BED, AWAKE, ALERT AND ORIENTED X3-4, ABLE TO COMMUNICATE NEEDS. BREATHING EVEN AND NON LABORED, ON ROOM AIR. WITH SLING ON R ARM AND SPLINT, INSTRUCTED NON-WEIGHT BEARING. IV ACCESS ON LFA G#20 WITH NS RUNNING AT 75 ML/HR RUNNING FLUSHING WELL, PATENT AND INTACT. PATIENT COMPLAINS OF 4/10 PAIN BUT DOESN'T WANT ANY ANALGESIC. SAFETY MEASURES IN PLACE. KEPT BED IN LOCKED AND IN LOWEST POSITION. SIDE RAILS UP X2, CALL LIGHT AND TRAY TABLE WITHIN REACH. WILL CONTINUE TO MONITOR.
[2022-05-23 08:00] VITALS: BP 135/91
[2022-05-23] MEDS: AMIODARONE HCL 200 MG TABLET PO SCH (09:28)
[2022-05-23] MEDS: FUROSEMIDE 40 MG TABLET PO SCH (09:28)
[2022-05-23] MEDS: METOPROLOL SUCCINATE 25 MG TAB.SR.24H PO SCH (09:28)
[2022-05-23] MEDS: AMLODIPINE BESYLATE 10 MG TABLET PO SCH (09:28)
[2022-05-23 16:00] VITALS: BP 115/74
[2022-05-23 18:16] LABS: BILIRUBIN,URINE NEGATIVE (NEGATIVE); COLOR,URINE YELLOW (YELLOW); LEUKOCYTE ESTERASE ,URINE NEGATIVE (NEGATIVE); NITRITE, URINE NEGATIVE (NEGATIVE); PROTEIN,URINE NEGATIVE (NEGATIVE); UGLUCOSE NEGATIVE (NEGATIVE); UROBILINOGEN,URINE 0.2 EU/dL (0.2)
[2022-05-23 18:21] LABS: CREATININE, URINE 26.8 MG/DL (30.0-125.0)
--- NOTE | 2022-05-23 18:33 | NUR ---
MS RN CLOSING NOTE PATIENT IN BED, AWAKE, ALERT AND ORIENTED X3-4, WITH DR LEBLANC AT BEDSIDE. NOT IN ANY APPARENT DISTRESS. STILL WITH SLING ON R ARM AND SPLINT, INSTRUCTED NON-WEIGHT BEARING. IV ACCESS ON LFA G#20 WITH NS RUNNING AT 75 ML/HR RUNNING FLUSHING WELL, PATENT AND INTACT. ALL DUE MEDS GIVEN, ALL NEEDS MET. SAFETY MEASURES MAINTAINED: KEPT BED IN LOCKED AND IN LOWEST POSITION. SIDE RAILS UP X2, CALL LIGHT AND TRAY TABLE WITHIN REACH. WILL CONTINUE TO MONITOR.
[2022-05-23 18:41] LABS: BACTERIA,URINE None seen /HPF (None Seen); RBC,URINE 0-2 /HPF (0-2); SQUAMOUS EPITHELIAL CELL,UR Rare /HPF (None Seen); WBC,URINE NONE SEEN /HPF (0-3)
[2022-05-23] MEDS: TEMAZEPAM 15 MG CAPSULE PO PRN (19:55)
[2022-05-23 20:00] VITALS: BP 114/72
--- NOTE | 2022-05-23 21:00 | NUR ---
MS RN OPENING NOTE PATIENT IN BED, AWAKE, ALERT AND ORIENTED X3-4, ABLE TO COMMUNICATE NEEDS. BREATHING EVEN AND NON LABORED, ON ROOM AIR. WITH SLING ON R ARM AND SPLINT, INSTRUCTED NON-WEIGHT BEARING. IV ACCESS ON LFA G#20 WITH NS RUNNING AT 75 ML/HR RUNNING FLUSHING WELL, PATENT AND INTACT. COMPLAINS OF PAIN AT SHOULDER 5/10. GIVEN TYLENOL PRN ORDERED. GIVEN RESTORIL FOR SLEEP. SAFETY MEASURES IN PLACE. KEPT BED IN LOCKED AND IN LOWEST POSITION. SIDE RAILS UP X2, CALL LIGHT AND TRAY TABLE WITHIN REACH. WILL CONTINUE TO MONITOR.
[2022-05-23] MEDS: ACETAMINOPHEN 325 MG TABLET PO PRN (21:50)
--- NOTE | 2022-05-24 06:39 | NUR ---
MS RN CLOSING NOTE PATIENT IN BED, AWAKE, ALERT AND ORIENTED X3-4, ABLE TO COMMUNICATE NEEDS. BREATHING EVEN AND NON LABORED, ON ROOM AIR. WITH SLING ON R ARM AND SPLINT, INSTRUCTED NON-WEIGHT BEARING. IV ACCESS ON LFA G#20 WITH NS RUNNING AT 75 ML/HR RUNNING FLUSHING WELL, PATENT AND INTACT. SAFETY MEASURES IN PLACE. KEPT BED IN LOCKED AND IN LOWEST POSITION. SIDE RAILS UP X2, CALL LIGHT AND TRAY TABLE WITHIN REACH. WILL ENDORSE TO NEXT SHIFT RN FOR DIONNA.
--- NOTE | 2022-05-24 07:27 | NUR ---
RN OPENING NOTE RECEIVED PATIENT IN BED, AWAKE, ALERT AND ORIENTED X4, ABLE TO MAKE NEEDS KNOWN. ON ROOM AIR, NPO SOB NOTED, BREATHING EVEN AND NON LABORED. NOTED WITH SLING ON R ARM AND SPLINT. NOTED WITH IV ACCESS ON LFA G#20, PATENT AND INTACT, WITH NS RUNNING AT 75 ML/HR. SAFETY MEASURES IN PLACE. BED IN LOCKED AND IN LOWEST POSITION. SIDE RAILS UP X2, CALL LIGHT AND TRAY TABLE WITHIN REACH. WILL CONTINUE TO MONITOR PATIENT.
[2022-05-24 08:00] VITALS: BP 124/90
[2022-05-24] MEDS: FUROSEMIDE 40 MG TABLET PO SCH (09:23)
[2022-05-24] MEDS: AMLODIPINE BESYLATE 10 MG TABLET PO SCH (09:24)
[2022-05-24] MEDS: AMIODARONE HCL 200 MG TABLET PO SCH (09:25)
[2022-05-24] MEDS: METOPROLOL SUCCINATE 25 MG TAB.SR.24H PO SCH (09:25)
[2022-05-24] MEDS: IV NS 0.9% 1,000 ML IV PRN (09:41)
[2022-05-24] MEDS: ACETAMINOPHEN 325 MG TABLET PO PRN (11:04)
[2022-05-24 16:00] VITALS: BP 119/62
[2022-05-24 16:44] LABS: CALCIUM, SERUM 8.1 mg/dL (8.5-10.1); CARBON DIOXIDE 27 mmol/L (21-32); CHLORIDE 104 mmol/L (98-107); CREATININE 2.1 mg/dL (0.6-1.3); GLUCOSE 93 mg/dL (74-106); POTASSIUM 3.6 mmol/L (3.5-5.1); SODIUM SERUM 138 mmol/L (136-145); UREA NITROGEN, BLOOD 31 mg/dL (7-18)
--- NOTE | 2022-05-24 18:53 | NUR ---
RN CLOSING NOTE PATIENT ASLEEP IN BED, NO SIGNS OF ACUTE DISTRESS NOTED. ABLE TO MAKE NEEDS KNOWN. REMAINS STABLE ON ROOM AIR, NO SOB NOTED, BREATHING EVEN AND NON LABORED. RIGHT ARM SPLINT AND SLING INTACT IN PLACE. IV ACCESS ON LFA G#20, PATENT AND INTACT, WITH NS RUNNING AT 75 ML/HR. SAFETY MEASURES IN PLACE. BED IN LOCKED AND IN LOWEST POSITION. SIDE RAILS UP X2, CALL LIGHT AND TRAY TABLE WITHIN REACH. WILL ENDORSE TO NEXT SHIFT FOR DIONNA.
--- NOTE | 2022-05-24 19:23 | NUR ---
RN OPENING NOTE PATIENT ASLEEP IN BED, NO SIGNS OF ACUTE DISTRESS NOTED. ABLE TO MAKE NEEDS KNOWN. REMAINS STABLE ON ROOM AIR, NO SOB NOTED, BREATHING EVEN AND NON LABORED. RIGHT ARM SPLINT AND SLING INTACT IN PLACE. IV ACCESS ON LFA G#20, PATENT AND INTACT, WITH NS RUNNING AT 75 ML/HR. SAFETY MEASURES IN PLACE. BED IN LOCKED AND IN LOWEST POSITION. SIDE RAILS UP X2, CALL LIGHT AND TRAY TABLE WITHIN REACH. WILL CONT TO MONITOR
[2022-05-24] MEDS: TEMAZEPAM 15 MG CAPSULE PO PRN (19:55)
[2022-05-24 20:00] VITALS: BP 143/93
[2022-05-24 20:09] VITALS: BP 143/93
[2022-05-25 08:00] VITALS: BP 98/76
[2022-05-25 09:00] VITALS: BP 98/76
[2022-05-25] MEDS: AMIODARONE HCL 200 MG TABLET PO SCH (09:00)
[2022-05-25] MEDS: METOPROLOL SUCCINATE 25 MG TAB.SR.24H PO SCH (09:00)
[2022-05-25] MEDS: AMLODIPINE BESYLATE 10 MG TABLET PO SCH (09:00)
[2022-05-25] MEDS: FUROSEMIDE 40 MG TABLET PO SCH (09:00)
[2022-05-25] MEDS ORDERED: HYDR-3972 PO (12:26)
--- NOTE | 2022-05-25 15:30 | NUR ---
Patient was discharged home with caregiver Mer via private transportation. Discharge instructions given and walker as ordered. Patient left in stable condition via wheelchair
== END 2022-05-25 15:00 | disposition home health service (06) | DRG 562 ==
LOC: ER 05:40 → MED 10:59
PROVIDERS: ADMIT Internal Medicine; ATTEND Internal Medicine
DX: S42.391A Other fracture of shaft of right humerus, initial encounter for closed fracture (principal); N17.0 Acute kidney failure with tubular necrosis; I13.0 Hypertensive heart and chronic kidney disease with heart failure and stage 1 through stage 4 chronic kidney disease, or unspecified chronic kidney disease; I42.9 Cardiomyopathy, unspecified; I48.0 Paroxysmal atrial fibrillation; Y92.009 Unspecified place in unspecified non-institutional (private) residence as the place of occurrence of the external cause; I50.9 Heart failure, unspecified; H91.90 Unspecified hearing loss, unspecified ear; R29.6 Repeated falls; Z79.899 Other long term (current) drug therapy; N18.9 Chronic kidney disease, unspecified; I25.10 Atherosclerotic heart disease of native coronary artery without angina pectoris; Z95.2 Presence of prosthetic heart valve; Z86.79 Personal history of other diseases of the circulatory system; F41.9 Anxiety disorder, unspecified; W01.0XXA Fall on same level from slipping, tripping and stumbling without subsequent striking against object, initial encounter; Z20.822 Contact with and (suspected) exposure to COVID-19
CPT/HCPCS: 36415; 71045-TC; 73060-TC; 76770-TC; 80048-TC; 80076-TC; 81001; 82570-TC; 82962-TC; 83735-TC; 84100-TC; 84300-TC; 85025-TC; 85730-TC; 86850-TC; 87081-TC; 93307-TC; A6253; C9803; G0378; J7030; J7050; Q9967